=== PATIENT | male | born 1975 ===

== ENCOUNTER 2017-03-04 15:29 | Emergency (ER) | payer OTHER ==
[2017-03-04 15:30] VITALS: BMI 29.0
[2017-03-04 15:58] VITALS: O2SAT 99
[2017-03-04] MEDS ORDERED: Oxycodone/Acetaminophen 5/325 mg Tab PO STA (16:38)
--- NOTE | 2017-03-04 16:49 | C.PDOC ---
History Of Present Illness The patient, a 41 y/o male, presents to the ED for evaluation of right ear pain associated with decreased hearing which began around 1 week ago. Patient states he has been taking Advil with transient relief from symptoms. Patient states his symptoms have worsened over the past 2 days and presents to the ED for further evaluation. Otherwise, he denies fever, chills, ear discharge. Time Seen by Provider: 03/04/17 16:07 Chief Complaint (Nursing): ENT Problem History Per: Patient History/Exam Limitations: None Onset/Duration Of Symptoms: Worse Since (2 days ), Other (1 week ) Current Symptoms Are (Timing): Worse Quality (Ear): Pain W/Touch. denies: Discharge Past Medical History Reviewed: Historical Data, Nursing Documentation, Vital Signs Vital Signs: Last Vital Signs Temp 98.1 F 03/04/17 17:36 Pulse 71 03/04/17 17:36 Resp 19 03/04/17 17:36 BP 123/72 03/04/17 17:36 Pulse Ox 99 03/04/17 17:48 - Medical History PMH: Anxiety Denies: Chronic Kidney Disease Surgical History: No Surg Hx Family History: States: Unknown Family Hx - Social History Hx Alcohol Use: No Hx Substance Use: No - Immunization History Hx Tetanus Toxoid Vaccination: No Hx Influenza Vaccination: No Hx Pneumococcal Vaccination: No Review Of Systems Except As Marked, All Systems Reviewed And Found Negative. Constitutional: Negative for: Fever, Chills ENT: Positive for: Ear Pain (right), Other (+decreased hearing in right ear ). Negative for: Ear Discharge Physical Exam - Physical Exam Appears: Non-toxic, No Acute Distress Skin: Normal Color, Warm, Dry Head: Atraumatic, Normacephalic Eye(s): bilateral: Normal Inspection, PERRL, EOMI Ear(s): Bilateral: Other (+cerumen impaction. TM not visualized (-) mastoid tenderness (-) exudate ) Nose: Normal, No Discharge Oral Mucosa: Moist Throat: Normal, No Erythema, No Exudate Neck: Normal ROM, Supple Lymphatic: Normal Exam, No Adenopathy Chest: Symmetrical, No Deformity, No Tenderness Cardiovascular: Rhythm Regular, No Murmur Respiratory: Normal Breath Sounds, No Rales, No Rhonchi, No Wheezing Extremity: Normal ROM, Capillary Refill (less than 2 seconds ) Neurological/Psych: Oriented x3, Normal Speech Gait: Steady ED Course And Treatment O2 Sat by Pulse Oximetry: 99 (on RA) Pulse Ox Interpretation: Normal Progress Note: Patient received Amoxicillin PO and Percocet PO. On reassessment , patient is resting comfortably, showing no signs of distress, remains afebrile , and reports an improvement in his ear pain. Patient is stable for discharge from the ED and is instructed to follow up with ENT within 1-2 days for further evaluation. Reassessment Condition: Improved Disposition - Disposition Referrals: Emmett Lowe MD [Staff Provider] - Disposition: HOME/ ROUTINE Disposition Time: 16:40 Condition: STABLE Additional Instructions: Follow up with referral physician in 1-2 days without fail for further evaluation. Take medications as prescribed. Return to the emergency department at any time if symptoms persist or worsen. Prescriptions: Amoxicillin 875 mg PO BID #14 tablet Carbamide Peroxide [Debrox] 5 drop OT BID #1 bottle traMADol [Ultram] 50 mg PO Q8 #20 tab Instructions: Earache (ED) Forms: Work Excuse - Clinical Impression Clinical Impression: Ear ache, Cerumen impaction - PA / [employer]AGE [employer]AMER / Resident Statement MD/DO has reviewed & agrees with the documentation as recorded. - Scribe Statement The provider has reviewed the documentation as recorded by the Scribe (Lynda Dejesus) All medical record entries made by the Scribe were at my direction and personally dictated by me. I have reviewed the chart and agree that the record accurately reflects my personal performance of the history, physical exam, medical decision making, and the department course for this patient. I have also personally directed, reviewed, and agree with the discharge instructions and disposition.
[2017-03-04] MEDS ORDERED: Oxycodone/Acetaminophen 5/325 mg Tab ONE (16:50)
[2017-03-04 17:37] VITALS: BP 123/72; PULSE 71; RESP 19; TEMP 98.1
== END 2017-03-04 17:36 | disposition home or self-care (01) ==
LOC: C.ER 15:29
DX: H61.21 Impacted cerumen, right ear (principal)

== ENCOUNTER 2017-03-07 10:29 | Day surgery (SDC) | payer OTHER ==
[2017-03-07 10:29] VITALS: BMI 29.0
--- NOTE | 2017-03-07 10:54 | C.PDOC ---
History Of Present Illness A 41 year old male presents to the ER c/o right ear pain for a week. Patient was seen at [facility] ER 4 days for the same c/o and was given antibiotics and pain medication with no relief. Patient was then seen by Dr. Lowe and was sent in for CT scan and possible surgery. Patient denies fever, chills, vomiting, nausea, headache, or any other complaints. Time Seen by Provider: 03/07/17 10:47 Chief Complaint (Nursing): ENT Problem History Per: Patient History/Exam Limitations: None Onset/Duration Of Symptoms: Days Current Symptoms Are (Timing): Still Present Severity: Mild Past Medical History Reviewed: Historical Data, Nursing Documentation, Vital Signs Vital Signs: Last Vital Signs Temp 97.7 F 03/07/17 14:50 Pulse 73 03/07/17 14:50 Resp 20 03/07/17 14:50 BP 124/82 03/07/17 14:50 Pulse Ox 98 03/07/17 15:09 - Medical History PMH: Anxiety Denies: Chronic Kidney Disease Other Surgeries: Hernia repair Family History: States: Unknown Family Hx - Social History Hx Alcohol Use: No Hx Substance Use: No - Immunization History Hx Tetanus Toxoid Vaccination: No Hx Influenza Vaccination: No Hx Pneumococcal Vaccination: No Review Of Systems Except As Marked, All Systems Reviewed And Found Negative. Constitutional: Negative for: Fever, Chills ENT: Positive for: Ear Pain (Right ear pain) Gastrointestinal: Negative for: Nausea, Vomiting Neurological: Negative for: Headache Physical Exam - Physical Exam Appears: Non-toxic, No Acute Distress Skin: Warm, Dry Head: Atraumatic, Normacephalic Eye(s): bilateral: Normal Inspection, EOMI Ear(s): Left: Normal, Right: TM Obscured By Wax, Other (Tenderness to tragus. Mild tenderness posterior to ear. No swelling to the mastoid) Nose: Normal, No Flaring Oral Mucosa: Moist Throat: Normal, No Exudate Neck: Normal ROM, Supple Cardiovascular: Rhythm Regular, No Murmur Respiratory: Normal Breath Sounds, No Rales, No Rhonchi, No Wheezing Extremity: Bilateral: Atraumatic, Normal Color And Temperature, Normal ROM Neurological/Psych: Oriented x3, Normal Speech, Normal Cognition, No Other (No focal deficit) ED Course And Treatment - Laboratory Results Result Diagrams: 03/07/17 11:13 03/07/17 11:13 Lab Interpretation: No Acute Changes O2 Sat by Pulse Oximetry: 98 (Room air) Pulse Ox Interpretation: Normal - CT Scan/US CT Temporal bones w/ contrast Other Rad Studies (CT/US): Interpreted By Me, Read By Radiologist CT/US Interpretation: PROCEDURE: CT OF THE TEMPORAL BONES WITH CONTRAST. HISTORY: right ear pain r.o mastoiditis. COMPARISON: None available. TECHNIQUE: Following administration of iodinated intravenous contrast, high resolution axial images of the temporal bones were obtained. Coronal and sagittal reformats were generated. Contrast dose: 100 mL Omnipaque 350. Radiation dose: Total exam DLP = 640.7 mGy-cm. This CT exam was performed using one or more of the following dose reduction techniques: Automated exposure control, adjustment of the mA and/or kV according to patient size, and/ or use of iterative reconstruction technique. FINDINGS: RIGHT TEMPORAL BONE: RIGHT MIDDLE EAR: Normal. RIGHT INNER EAR: Cochlea: Normal. Semicircular canals: Normal. RIGHT MASTOID AIR CELLS: Normal. RIGHT INTERNAL AUDITORY CANAL: Normal. RIGHT EXTERNAL AUDITORY CANAL: There is approximately 7 millimeter density at the distal portion of the right external auditory canal likely represented impacted cerumen. RIGHT VESTIBULAR AND COCHLEAR AQUEDUCT: Normal. OTHER: no abnormal enhancement. LEFT TEMPORAL BONE: LEFT MIDDLE EAR : Normal. LEFT INNER EAR: Cochlea: Normal. Semicircular canals: Normal. LEFT MASTOID AIR CELLS: Normal. LEFT INTERNAL AUDITORY CANAL: There is also focal opacity at the distal left external auditory canal that also likely represent impacted cerumen. LEFT EXTERNAL AUDITORY CANAL: Normal. LEFT VESTIBULAR AND COCHLEAR AQUEDUCTS: Normal. OTHER FINDINGS: Moderate nasal septum deviation to the right. IMPRESSION: No evidence of mastoiditis or otitis media. Focal density at the distal aspect of both external auditory canals likely represent impacted cerumen.. Medical Decision Making Medical Decision Making: Impression: 41 y.o male with severe right ear pain for 1 week [address] Lowe who sent patient to ED. Requests CT temportal bone, r.o mastoiditis. Keep NPO. 10 decadron Prior record reviewed patient was seen in ED 03/04 for right ear pain, diagnosed with cerumen impaction, earache, and treated with Amoxicillin, Debrox and Tramadol Labs reviewed and unremarkable. CT pending CT completed awaiting radiology report Attempt to contact radiologist for official CT report Call Dr Lowe to discuss case and dispo, Dr Lowe wants official CT report 1430 Contact and speak with DR Cameron for CT reading 1451 CT IMPRESSION: No evidence of mastoiditis or otitis media. Focal density at the distal aspect of both external auditory canals likely represent impacted cerumen. Contact Dr Lowe who states patient is scheduled for OR at 1730 for cerumen impaction Patient continues to complain of pain. Morphine ordered. Orders placed for SDS Disposition - Disposition Disposition: HOSPITALIZED Disposition Time: 15:02 Condition: STABLE - POA Present On Arrival: None - Clinical Impression Clinical Impression: Cerumen impaction - Scribe Statement The provider has reviewed the documentation as recorded by the Scribe Marcia celis All medical record entries made by the Malikibe were at my direction and personally dictated by me. I have reviewed the chart and agree that the record accurately reflects my personal performance of the history, physical exam, medical decision making, and the department course for this patient. I have also personally directed, reviewed, and agree with the discharge instructions and disposition. Decision To Admit - Pt Status Changed To: Hospital Disposition Of: SDS- Endo,OR,Cath,IR - . Bed Request Type: Same Day Surgery Admitting Physician: Emmett Lowe Patient Diagnosis: Cerumen impaction
[2017-03-07] MEDS ORDERED: Sodium Chloride 0.9% 1,000 ML IV ONE (10:55)
[2017-03-07] MEDS ORDERED: Dexamethasone 10 MG in Sodium Chloride 0.9% 50 ML IV ONE (10:56)
[2017-03-07] MEDS ORDERED: Sodium Chloride 0.9% 1,000 ML ONE (11:14)
[2017-03-07] MEDS ORDERED: Dexamethasone 4 mg/1 ml ONE (11:15)
[2017-03-07 11:19] LABS: BASO % 0.5 % (0.0-2.0); EOS # 0.5 K/uL (0.0-0.7); HEMATOCRIT 47.6 % (35.0-51.0); LYMPH # 1.9 K/uL (1.0-4.3); LYMPH % 22.4 % (20.0-40.0); MEAN CELL VOLUME 89.2 fL (80.0-94.0); MEAN CORPUSCULAR HEMOGLOBIN 29.5 pg (27.0-31.0); MEAN CORPUSCULAR HGB CONC 33.1 g/dL (33.0-37.0); MEAN PLATELET VOLUME 8.2 fL (7.2-11.7); MONO # 0.7 K/uL (0.0-0.8); MONO % 8.4 % (0.0-10.0); RED CELL DISTRIBUTION WIDTH 13.6 % (11.5-14.5); WHITE BLOOD COUNT 8.4 K/uL (4.8-10.8)
[2017-03-07 11:28] LABS: POTASSIUM 3.9 mmol/L (3.6-5.2); SODIUM 138 mmol/L (132-148)
[2017-03-07 11:31] LABS: ALB/GLOB RATIO 1.5 (1.0-2.1); ALKALINE PHOSPHATASE 73 U/L (38-126); ALT/SGPT 31 U/L (21-72); AST/SGOT 33 U/L (17-59); BILIRUBIN,TOTAL 1.3 mg/dL (0.2-1.3); BLOOD UREA NITROGEN 13 mg/dL (9-20); CARBON DIOXIDE 31 mmol/L (22-30); GFR AFRICAN-AMERICAN > 60; GLUCOSE,RANDOM 80 mg/dL (75-110)
[2017-03-07 11:32] LABS: CALCIUM 8.8 mg/dl (8.6-10.4)
[2017-03-07 11:52] LABS: RBC URINE 3 /hpf (0-3); URINE BACTERIA RARE (<OCC); URINE BILIRUBIN NEGATIVE (NEGATIVE); URINE BLOOD NEGATIVE (NEGATIVE); URINE COLOR Yellow (YELLOW); URINE GLUCOSE (UA) NORMAL (Normal); URINE KETONE NEGATIVE (NEGATIVE); URINE LEUKOCYTE ESTERASE NEG Leu/uL (Negative); URINE PROTEIN NEGATIVE (NEGATIVE); URINE UROBILINOGEN NORMAL mg/dL (0.2-1.0); WBC URINE 1 /hpf (0-5)
[2017-03-07] MEDS ORDERED: Iohexol 350mg/ml 100 ML ONE (12:19)
--- NOTE | 2017-03-07 14:53 | CT ---
PROCEDURE: CT OF THE TEMPORAL BONES WITH CONTRAST HISTORY: right ear pain r.o mastoiditis COMPARISON: None available. TECHNIQUE: Following administration of iodinated intravenous contrast, high resolution axial images of the temporal bones were obtained. Coronal and sagittal reformats were generated. Contrast dose: 100 mL Omnipaque 350 Radiation dose: Total exam DLP = 640.7 mGy-cm. This CT exam was performed using one or more of the following dose reduction techniques: Automated exposure control, adjustment of the mA and/or kV according to patient size, and/or use of iterative reconstruction technique. FINDINGS: RIGHT TEMPORAL BONE: RIGHT MIDDLE EAR: Normal RIGHT INNER EAR: Cochlea: Normal Semicircular canals: Normal RIGHT MASTOID AIR CELLS: Normal RIGHT INTERNAL AUDITORY CANAL: Normal RIGHT EXTERNAL AUDITORY CANAL: There is approximately 7 millimeter density at the distal portion of the right external auditory canal likely represented impacted cerumen. RIGHT VESTIBULAR AND COCHLEAR AQUEDUCT: Normal OTHER: no abnormal enhancement. LEFT TEMPORAL BONE: LEFT MIDDLE EAR: Normal LEFT INNER EAR: Cochlea: Normal Semicircular canals: Normal LEFT MASTOID AIR CELLS: Normal LEFT INTERNAL AUDITORY CANAL: There is also focal opacity at the distal left external auditory canal that also likely represent impacted cerumen LEFT EXTERNAL AUDITORY CANAL: Normal LEFT VESTIBULAR AND COCHLEAR AQUEDUCTS: Normal OTHER FINDINGS: Moderate nasal septum deviation to the right. IMPRESSION: No evidence of mastoiditis or otitis media. Focal density at the distal aspect of both external auditory canals likely represent impacted cerumen..
--- NOTE | 2017-03-07 16:10 | RAD ---
HISTORY: PREOP COMPARISON: None available TECHNIQUE: Chest, one view. FINDINGS: Examination limited by hypoinflation. LUNGS: Bilateral hilar prominence. No focal consolidation. Please note that chest x-ray has limited sensitivity for the detection of pulmonary masses. PLEURA: No significant pleural effusion identified. No definite pneumothorax . CARDIOVASCULAR: The cardiomediastinal silhouette appears within normal limits of size. OSSEOUS STRUCTURES: No acute osseous abnormality identified. VISUALIZED UPPER ABDOMEN: Unremarkable. OTHER FINDINGS: None. IMPRESSION: No acute findings. Additional findings as above.
[2017-03-07] MEDS ORDERED: Acetaminophen-Codeine 300/30 mg Tab PO PRN (17:45)
[2017-03-07] MEDS ORDERED: Dextrose 5%/0.45% NS 1,000 ML IV SCH (17:45)
[2017-03-07] MEDS ORDERED: HYDROmorphone 0.5 mg/0.5 ml ISec IVP PRN (17:47)
[2017-03-07] MEDS ORDERED: Midazolam 2 MG/2 ML VIAL ONE (17:52)
[2017-03-07] MEDS ORDERED: Propofol 10 mg/ml Inj (20 ML) ONE ×2 (17:52→18:01)
[2017-03-07] MEDS ORDERED: Lactated Ringer's 1,000 ML IV ONE (17:54)
[2017-03-07 21:04] VITALS: BP 108/76; PULSE 72; RESP 13; TEMP 97.8; O2SAT 95
--- NOTE | 2017-03-07 21:48 | OP ---
PROCEDURE DATE: 03/07/2017 PREOPERATIVE DIAGNOSIS: Ear wax and ear pain on the right, ear wax on both sides. POSTOPERATIVE DIAGNOSIS: Ear wax and ear pain on the right, ear wax on both sides. PROCEDURE: Ear exam under anesthesia with ear wax removal. DESCRIPTION OF PROCEDURE: The patient was brought in room, placed in supine position. Anesthesia wa s initiated through face mask and IV. The head was turned. The right ear was brought into view usin g operative microscope and ear speculum after the patient was draped in the usual manner. Wax was no candido in the ear canal and removed using micro forceps. Small laceration was noted in the ear canal. TM was noted to be intact. Next, the head was turned. The other ear was brought into view using [facility] ro operative microscope and ear speculum and wax was noted in the ear canal and removed using micro f orceps. The ear speculum and microscope were removed. The patient was taken off anesthesia and take n to recovery room in stable manner. Emmett Lowe MD cc: [phone] TT: 03/07/2017 21:47:42 chantal
--- NOTE | 2017-03-08 17:08 | CARD ---
APPROVED REPORT EKG Measurement Heart [id number] <Conclusion> Normal sinus rhythm Normal ECG
[2017-03-08 17:34] LABS: CHLORIDE 98 mmol/L (98-107)
== END 2017-03-07 19:15 | disposition home or self-care (01) ==
LOC: C.ER 10:29 → C.SDS 16:18
PROVIDERS: ATTEND Otolaryngology
DX: H61.23 Impacted cerumen, bilateral (principal); H92.01 Otalgia, right ear
CPT/HCPCS: 69210; 70481; 71010; 80053; 81001; 85025; 96360; 96374; J1100; J2250; J2270; J2704; J7040; J7120; Q9967